=== PATIENT | female | born 2000 | race Caucasian/White ===

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

== ENCOUNTER 2021-01-15 20:09 | Emergency (ER) | payer BC ==
[~2021-01-15] VITALS: Ht 154.9 cm; Wt 42.3 kg
[~2021-01-15 20:09] MED LIST: TRAZ-252 PO
[2021-01-15] MEDS ORDERED: MULTTAB20 PO (20:22)
[2021-01-15] MEDS ORDERED: PROZ10CA7 PO (20:22)
[2021-01-16 00:15] VITALS: BP 121/67
== END 2021-01-16 00:31 | disposition home or self-care (01) ==
LOC: M ED 20:09
DX: O99.340 Other mental disorders complicating pregnancy, unspecified trimester (principal); O99.320 Drug use complicating pregnancy, unspecified trimester; Z3A.00 Weeks of gestation of pregnancy not specified

== ENCOUNTER → 2021-04-22 | Outpatient (CLI) | payer BC ==
[~2021-04-22] MED LIST changes: +MULTTAB20 PO; +PROZ10CA7 PO
== END ==
LOC: M LABSMTC 09:42
PROVIDERS: ATTEND Pediatrics
DX: Z11.52 Encounter for screening for COVID-19 (principal)

== ENCOUNTER 2021-08-30 10:08 | Inpatient (IN) | payer BC ==
[~2021-08-30] VITALS: Ht 154.9 cm; Wt 57.3 kg
[2021-08-30] VITALS (30 sets, daily range): BP systolic 94–170; BP diastolic 53–85
[2021-08-30] MEDS ORDERED: HOME MED LIST COMPLETE! XX SCH (10:35)
[2021-08-30] MEDS ORDERED: LACTATED RINGER'S 1000 ML IV STA (12:12)
[2021-08-30] MEDS ORDERED: TRANEXAMIC ACID INJection 1,000 MG in NS 100 ML IV PRN (12:15)
[2021-08-30] MEDS ORDERED: CARBOPROST TROMETHAMINE 250 MCG/ML AMP IM PRN (12:15)
[2021-08-30] MEDS ORDERED: METHYLERGONOVINE MALEATE 0.2 MG/ML VIAL (J2210) IM PRN (12:15)
[2021-08-30] MEDS ORDERED: OXYTOCIN DRIP 30 UNITS in IV 1 EA IV PRN (12:15)
[2021-08-30] MEDS ORDERED: LIDOCAINE 1% MDV 20ML VIAL INFIL PRN (12:15)
[2021-08-30] MEDS ORDERED: ONDANSETRON 4MG/2ML VIAL IV ONE (12:35)
[2021-08-30 12:57] LABS: HEMATOCRIT 31.1 % (36.0-47.0); HEMOGLOBIN 10.1 g/dl (12.0-15.5); MEAN CORPUSCULAR HEMOGLOBIN 28.7 pg (27.0-33.0); MEAN CORPUSCULAR HGB CONC 32.5 g/dl (32.0-36.5); MEAN CORPUSCULAR VOLUME 88.4 fl (80.0-96.0); PLATELET COUNT, AUTOMATED 305 10^3/uL (150-450); RED BLOOD COUNT 3.52 10^6/uL (4.00-5.40); WHITE BLOOD COUNT 24.3 10^3/uL (4.0-10.0)
[2021-08-30] MEDS ORDERED: FENTANYL 2MCG/ML ROPIVACAINE 0.2% IN 0.9% NACL 100ML IVBAG As Ordered ONE (12:57)
[2021-08-30] MEDS: LR 1,000 ML IV SCH ×2 (13:17→16:49)
[2021-08-30] MEDS ORDERED: NALOXONE INJ 0.4MG/1ML VIAL (J2310 PER 1MG) IV PRN (14:20)
[2021-08-30] MEDS ORDERED: EPIDURAL/PCA KEYS XX PRN (14:20)
[2021-08-30] MEDS ORDERED: ONDANSETRON 4MG/2ML VIAL IV PRN (14:20)
[2021-08-30] MEDS ORDERED: FENTANYL/ROPIVACAINE/NACL BAG 100 ML EPIDURAL SCH (14:20)
[2021-08-30] MEDS ORDERED: diphenhydrAMINE 50MG/ML VIAL (J1200) IV PRN (14:20)
[2021-08-30] MEDS ORDERED: REFRIGERATOR IV KEYS XX PRN (14:20)
[2021-08-30] MEDS ORDERED: ePHEDrine SULFATE 25 MG/5 ML(5MG/ML) SYRINGE IV PRN (14:20)
[2021-08-30] MEDS ORDERED: EPIDURAL COMMENT XX SCH (14:20)
[2021-08-30] MEDS ORDERED: LACTATED RINGER'S 1000 ML IV PRN (14:20)
[2021-08-30] MEDS ORDERED: OXYTOCIN DRIP 30 UNITS in IV 1 EA IV SCH ×2 (18:15→20:50)
[2021-08-30] MEDS ORDERED: METHYLERGONOVINE MALEATE 0.2 MG TAB PO PRN (20:50)
[2021-08-30] MEDS ORDERED: DIBUCAINE 1% OINTMENT 30GM TOP PRN (20:50)
[2021-08-30] MEDS ORDERED: DOCUSATE SODIUM 100MG CAPSULE PO PRN (20:50)
[2021-08-30] MEDS ORDERED: IBUPROFEN 600MG TAB PO PRN (20:50)
[2021-08-30] MEDS ORDERED: RHOGAM 300 MCG (1500 IU) INJ (J2790) IM SCH (20:50)
[2021-08-30] MEDS ORDERED: MOM 30ML SUSPENSION UDC PO PRN (20:50)
[2021-08-30] MEDS ORDERED: ACETAMINOPHEN TAB 650MG DOSE (2X325MG) PO PRN (20:50)
[2021-08-30] MEDS ORDERED: MEASLES,MUMPS,RUBELLA VACCINE INJ (MMR-II) (90707) SC SCH (20:50)
[2021-08-30] MEDS ORDERED: METHYLERGONOVINE MALEATE 0.2 MG/ML VIAL (J2210) IM STA (22:54)
[2021-08-30] MEDS ORDERED: TRANEXAMIC ACID INJection 1,000 MG in D5W 100 ML IV ONE (22:55)
[2021-08-31] VITALS (13 sets, daily range): BP systolic 78–126; BP diastolic 55–110
[2021-08-31] MEDS: IBUPROFEN 800 MG TAB PO PRN ×2 (02:30→19:42)
[2021-08-31 06:24] LABS: MEAN CORPUSCULAR HEMOGLOBIN 28.3 pg (27.0-33.0); MEAN CORPUSCULAR HGB CONC 31.5 g/dl (32.0-36.5); PLATELET COUNT, AUTOMATED 237 10^3/uL (150-450); RED BLOOD COUNT 2.19 10^6/uL (4.00-5.40); WHITE BLOOD COUNT 25.4 10^3/uL (4.0-10.0)
[2021-08-31 06:31] LABS: HEMATOCRIT 19.7 % (36.0-47.0); HEMOGLOBIN 6.2 g/dl (12.0-15.5)
[2021-08-31] MEDS: ACETAMINOPHEN 500 MG TAB PO PRN (09:21)
[2021-08-31] MEDS: PRENATAL VITAMINS CHEWABLE TABLET PO SCH (09:21)
[2021-08-31] MEDS: FERROUS GLUCONATE 324 MG TAB PO SCH (21:49)
[2021-09-01 06:00] VITALS: BP 109/60
[2021-09-01 06:50] LABS: HEMATOCRIT 25.5 % (36.0-47.0); MEAN CORPUSCULAR HEMOGLOBIN 29.6 pg (27.0-33.0); MEAN CORPUSCULAR HGB CONC 33.3 g/dl (32.0-36.5); MEAN CORPUSCULAR VOLUME 88.9 fl (80.0-96.0); PLATELET COUNT, AUTOMATED 235 10^3/uL (150-450); RED BLOOD COUNT 2.87 10^6/uL (4.00-5.40); WHITE BLOOD COUNT 18.5 10^3/uL (4.0-10.0)
[2021-09-01 06:56] LABS: HEMOGLOBIN 8.5 g/dl (12.0-15.5)
[2021-09-01] MEDS: FERROUS GLUCONATE 324 MG TAB PO SCH (09:26)
[2021-09-01] MEDS: PRENATAL VITAMINS CHEWABLE TABLET PO SCH (09:27)
[2021-09-01] MEDS: ACETAMINOPHEN 500 MG TAB PO PRN (09:27)
[2021-09-01] MEDS ORDERED: LATU20TA PO (15:36)
[2021-09-01 16:30] VITALS: BP 113/64
== END 2021-09-01 17:30 | disposition home or self-care (01) | DRG 560 ==
LOC: M LDO 10:08 → M LDI 12:10 → M OBS 22:26
PROVIDERS: ADMIT Obstetrics & Gynecology; ATTEND Obstetrics & Gynecology
PROC: 10E0XZZ Delivery of Products of Conception, External Approach (ICD-10-PCS; principal; 2021-08-30)
DX: O99.344 Other mental disorders complicating childbirth (principal); F31.9 Bipolar disorder, unspecified; Z37.0 Single live birth; Z3A.39 39 weeks gestation of pregnancy; Z88.0 Allergy status to penicillin

== ENCOUNTER 2021-09-28 15:38 | Emergency (ER) | payer BC ==
[~2021-09-28] VITALS: Ht 154.9 cm; Wt 46.4 kg
[~2021-09-28 15:38] MED LIST changes: +LATU20TA PO
[2021-09-28 20:10] VITALS: BP 112/80
== END 2021-09-28 20:13 | disposition home or self-care (01) ==
LOC: M ED 15:38
DX: F43.20 Adjustment disorder, unspecified (principal); J45.909 Unspecified asthma, uncomplicated; F31.9 Bipolar disorder, unspecified; F33.9 Major depressive disorder, recurrent, unspecified; F41.9 Anxiety disorder, unspecified; Z79.899 Other long term (current) drug therapy; Z88.0 Allergy status to penicillin; F12.20 Cannabis dependence, uncomplicated

== ENCOUNTER 2021-12-11 15:52 | Emergency (ER) | payer BC ==
[2021-12-11 21:20] LABS: HEMATOCRIT 37.8 % (36.0-47.0); MEAN CORPUSCULAR HEMOGLOBIN 28.3 pg (27.0-33.0); MEAN CORPUSCULAR HGB CONC 31.7 g/dl (32.0-36.5); MEAN CORPUSCULAR VOLUME 89.2 fl (80.0-96.0); PLATELET COUNT, AUTOMATED 408 10^3/uL (150-450); RED BLOOD COUNT 4.24 10^6/uL (4.00-5.40); WHITE BLOOD COUNT 7.5 10^3/uL (4.0-10.0)
[2021-12-11 21:39] LABS: HCG, SERUM QUALITATIVE NEGATIVE (NEGATIVE)
[2021-12-11 21:49] LABS: ACETAMINOPHEN LEVEL < 2.0 UG/ML (10.0-30.0); ALBUMIN 4.1 GM/DL (3.2-5.2); ALT/SGPT 26 U/L (12-78); BILIRUBIN,DIRECT 0.1 MG/DL (0.0-0.2); BILIRUBIN,TOTAL 0.4 MG/DL (0.2-1.0); BLOOD UREA NITROGEN 9 MG/DL (7-18); CALCIUM LEVEL 9.6 MG/DL (8.5-10.1); CARBON DIOXIDE LEVEL 25 MEQ/L (21-32); CHLORIDE LEVEL 111 MEQ/L (98-107); CREATININE FOR GFR 0.68 MG/DL (0.55-1.30); ETHYL ALCOHOL (ETHANOL) < 0.003 % (0.000-0.010); GLUCOSE, FASTING 87 MG/DL (70-100); POTASSIUM SERUM 3.8 MEQ/L (3.5-5.1); SALICYLATE LEVEL < 1.7 MG/DL (5.0-30.0); SODIUM LEVEL 144 MEQ/L (136-145); TOTAL PROTEIN 7.3 GM/DL (6.4-8.2); VALPROIC ACID (DEPAKOTE) < 3.0 UG/ML (50.0-100.0)
[2021-12-11 22:54] LABS: RSV AMPLIFICATION NEGATIVE (NEGATIVE)
[2021-12-11] MEDS ORDERED: XANA0.5T PO (23:13)
[2021-12-11] MEDS ORDERED: ABIL1TAB11 PO (23:13)
[2021-12-11] MEDS ORDERED: DEPA1TAB PO (23:13)
[2021-12-11] MEDS ORDERED: HOME MED LIST COMPLETE! XX SCH (23:15)
[2021-12-12] MEDS ORDERED: ALPRAZolam 0.5 MG TAB PO ONE ×2 (08:10→11:40)
[2021-12-12] MEDS ORDERED: ACETAMINOPHEN 325 MG TAB PO ONE (08:10)
[2021-12-12] MEDS ORDERED: DIVA250T67 PO (08:23)
[2021-12-12] MEDS ORDERED: ALPRAZolam 0.5 MG TAB PO PRN (08:45)
[2021-12-12 08:59] LABS: AMPHETAMINES LEVEL URINE NEGATIVE (NEGATIVE); BARBITURATES URINE NEGATIVE (NEGATIVE); BENZODIAZEPINES URINE POSITIVE (NEGATIVE); CANNABINOIDS URINE POSITIVE (NEGATIVE); COCAINE METABOLITE URINE NEGATIVE (NEGATIVE); METHADONE URINE NEGATIVE (NEGATIVE); OPIATES URINE NEGATIVE (NEGATIVE); PHENCYCLIDINE URINE NEGATIVE (NEGATIVE)
[2021-12-12] MEDS ORDERED: DIVALPROEX 250 MG TAB PO SCH (09:00)
[2021-12-12] MEDS ORDERED: DIVALPROEX 125 MG TAB PO ONE (09:00)
[2021-12-12 17:58] VITALS: BP 129/73
== END 2021-12-12 17:59 | disposition home or self-care (01) ==
LOC: M ED 15:52
DX: F43.9 Reaction to severe stress, unspecified (principal); F31.9 Bipolar disorder, unspecified; Z63.0 Problems in relationship with spouse or partner; Z79.899 Other long term (current) drug therapy; Z88.1 Allergy status to other antibiotic agents

== ENCOUNTER → 2022-05-05 | Outpatient (CLI) | payer BC ==
[~2022-05-05] MED LIST changes: +ABIL1TAB11 PO; +DEPA1TAB PO; +DIVA250T67 PO; +XANA0.5T PO
== END ==
LOC: M PLALAB 15:01
PROVIDERS: ATTEND Obstetrics & Gynecology
DX: Z34.81 Encounter for supervision of other normal pregnancy, first trimester (principal)

== ENCOUNTER 2022-08-29 17:31 | Emergency (ER) | payer OTHER, BC ==
[~2022-08-29] VITALS: Ht 154.9 cm; Wt 45.5 kg
[2022-08-29 19:32] LABS: BASO # 0.1 10^3/uL (0.0-0.2); BASO % 0.5 % (0.0-1.0); EOS # 0.3 10^3/uL (0.0-0.5); EOS % 1.7 % (0.0-3.0); HEMATOCRIT 33.8 % (36.0-47.0); HEMOGLOBIN 10.9 g/dl (12.0-15.5); LYMPH # 2.6 10^3/uL (1.5-5.0); LYMPH % 17.3 % (24.0-44.0); MEAN CORPUSCULAR HEMOGLOBIN 30.6 pg (27.0-33.0); MEAN CORPUSCULAR HGB CONC 32.2 g/dl (32.0-36.5); MEAN CORPUSCULAR VOLUME 94.9 fl (80.0-96.0); MONO # 0.9 10^3/uL (0.0-0.8); MONO % 6.2 % (2.0-8.0); NEUTROPHILS % 73.4 % (36.0-66.0); PLATELET COUNT, AUTOMATED 238 10^3/uL (150-450); RED BLOOD COUNT 3.56 10^6/uL (4.00-5.40); WHITE BLOOD COUNT 14.9 10^3/uL (4.0-10.0)
[2022-08-29 20:05] LABS: LIPASE 33 U/L (12-53)
[2022-08-29 20:07] LABS: ALBUMIN 3.2 G/DL (3.2-5.2); ALKALINE PHOSPHATASE 90 U/L (46-116); ALT/SGPT 10 U/L (7.0-40); AST/SGOT 14 U/L (<34); BILIRUBIN,TOTAL 0.2 MG/DL (0.3-1.2); BLOOD UREA NITROGEN 9 MG/DL (9-23); CALCIUM LEVEL 8.9 MG/DL (8.5-10.1); CARBON DIOXIDE LEVEL 24 MMOL/L (20-31); CHLORIDE LEVEL 108 MMOL/L (98-107); GLOMERULAR FILTRATION RATE > 60.0 (>60); GLUCOSE, FASTING 75 MG/DL (60-100); SODIUM LEVEL 139 MMOL/L (136-145); TOTAL PROTEIN 6.1 G/DL (5.7-8.2)
[2022-08-29 21:01] VITALS: BP 112/70
[2022-08-29] MEDS ORDERED: LATU20TA PO (21:37)
== END 2022-08-29 21:15 | disposition admitted as inpatient to this hospital (09) ==
LOC: M ED 17:31
DX: O26.893 Other specified pregnancy related conditions, third trimester (principal); S13.4XXA Sprain of ligaments of cervical spine, initial encounter; S33.5XXA Sprain of ligaments of lumbar spine, initial encounter; V49.50XA Passenger injured in collision with unspecified motor vehicles in traffic accident, initial encounter; F41.9 Anxiety disorder, unspecified; Z88.1 Allergy status to other antibiotic agents; Z3A.27 27 weeks gestation of pregnancy; Z79.83 Long term (current) use of bisphosphonates

== ENCOUNTER 2022-08-29 21:19 | Outpatient (CLI) | payer OTHER, BC ==
[~2022-08-29] VITALS: Ht 154.9 cm; Wt 45.7 kg
[2022-08-29 21:31] VITALS: BP 103/61
[2022-08-29] MEDS ORDERED: LATU20TA PO (21:37)
[2022-08-29] MEDS ORDERED: HOME MED LIST COMPLETE! XX SCH (21:40)
== END 2022-08-29 22:13 | disposition home or self-care (01) ==
LOC: M LDO 21:19
PROVIDERS: ATTEND Specialist
DX: O26.892 Other specified pregnancy related conditions, second trimester (principal); M54.50 Low back pain, unspecified; V43.62XA Car passenger injured in collision with other type car in traffic accident, initial encounter; Y92.9 Unspecified place or not applicable; Z04.1 Encounter for examination and observation following transport accident; Z3A.27 27 weeks gestation of pregnancy
CPT/HCPCS: 59025; 72125; 80053; 83690; 85025; 85460; 86850; 86900; 86901; 99284; G0463

== ENCOUNTER → 2022-10-04 | Outpatient (CLI) | payer BC | LOC: M WHC 12:22 | PROVIDERS: ATTEND Advanced Practice Midwife | DX: Z34.93 Encounter for supervision of normal pregnancy, unspecified, third trimester (principal); Z3A.32 32 weeks gestation of pregnancy; Z36.89 Encounter for other specified antenatal screening ==

== ENCOUNTER 2022-10-09 21:28 | Emergency (ER) | payer BC ==
[~2022-10-09] VITALS: Ht 154.9 cm; Wt 46.4 kg
[2022-10-09 21:41] VITALS: BP 122/67
== END 2022-10-09 22:29 | disposition left against medical advice (07) ==
LOC: M ED 21:28
DX: Z53.21 Procedure and treatment not carried out due to patient leaving prior to being seen by health care provider (principal)

== ENCOUNTER → 2022-10-11 | Outpatient (CLI) | payer BC ==
[2022-10-11 19:29] LABS: HEMATOCRIT 36.3 % (36.0-47.0); HEMOGLOBIN 11.6 g/dl (12.0-15.5); MEAN CORPUSCULAR HEMOGLOBIN 29.1 pg (27.0-33.0); PLATELET COUNT, AUTOMATED 317 10^3/uL (150-450); RED BLOOD COUNT 3.99 10^6/uL (4.00-5.40); WHITE BLOOD COUNT 13.2 10^3/uL (4.0-10.0)
[2022-10-11 20:20] LABS: GC DNA AMPLIFICATION NEGATIVE (NEGATIVE)
== END ==
LOC: M LAB 17:41
PROVIDERS: ATTEND Obstetrics & Gynecology
DX: O26.843 Uterine size-date discrepancy, third trimester (principal); Z3A.00 Weeks of gestation of pregnancy not specified

== ENCOUNTER 2022-10-24 13:16 | Outpatient (CLI) | payer BC ==
[~2022-10-24] VITALS: Ht 154.9 cm; Wt 45.1 kg
[2022-10-24 13:35] VITALS: BP 108/67
[2022-10-24] MEDS ORDERED: MULTTAB20 PO (13:44)
[2022-10-24] MEDS ORDERED: HOME MED LIST COMPLETE! XX SCH (13:50)
[2022-10-24 14:43] LABS: AMPHETAMINES URINE REFLEX NEGATIVE (NEGATIVE); BARBITURATES URINE REFLEX NEGATIVE (NEGATIVE); BENZODIAZEPINES URINE REFLEX NEGATIVE (NEGATIVE); COCAINE METABOLITE URINE REFLE NEGATIVE (NEGATIVE); METHADONE URINE REFLEX NEGATIVE (NEGATIVE); OPIATES URINE REFLEX NEGATIVE (NEGATIVE); PHENCYCLIDINE URINE REFLEX NEGATIVE (NEGATIVE)
[2022-10-24 14:56] LABS: HEMATOCRIT 33.2 % (36.0-47.0); HEMOGLOBIN 10.8 g/dl (12.0-15.5); MEAN CORPUSCULAR HEMOGLOBIN 29.3 pg (27.0-33.0); MEAN CORPUSCULAR HGB CONC 32.5 g/dl (32.0-36.5); PLATELET COUNT, AUTOMATED 280 10^3/uL (150-450); RED BLOOD COUNT 3.69 10^6/uL (4.00-5.40); WHITE BLOOD COUNT 12.2 10^3/uL (4.0-10.0)
[2022-10-24 15:12] LABS: CANNABINOIDS URINE REFLEX PENDING CONFIRMATION (NEGATIVE)
[2022-10-24 15:21] LABS: ALBUMIN 3.1 G/DL (3.2-5.2); ALKALINE PHOSPHATASE 160 U/L (46-116); ALT/SGPT 15 U/L (7.0-40); AST/SGOT 16 U/L (<34); BILIRUBIN,TOTAL 0.3 MG/DL (0.3-1.2); BLOOD UREA NITROGEN 7 MG/DL (9-23); CALCIUM LEVEL 8.8 MG/DL (8.5-10.1); CARBON DIOXIDE LEVEL 23 MMOL/L (20-31); CHLORIDE LEVEL 106 MMOL/L (98-107); CREATININE FOR GFR 0.47 MG/DL (0.55-1.30); GLOMERULAR FILTRATION RATE > 60.0 (>60); GLUCOSE, FASTING 82 MG/DL (60-100); POTASSIUM SERUM 3.8 MMOL/L (3.5-5.1); SODIUM LEVEL 138 MMOL/L (136-145); TOTAL PROTEIN 6.1 G/DL (5.7-8.2)
[2022-10-24 15:40] VITALS: BP 111/68
[2022-10-24] MEDS ORDERED: FERR325T3 PO (16:00)
[2022-10-24] MEDS ORDERED: PROC1AER16 PR (16:01)
[2022-10-24] MEDS ORDERED: COLA100C5 PO (16:08)
== END 2022-10-24 16:04 | disposition home or self-care (01) ==
LOC: M LDO 13:16
PROVIDERS: ATTEND Obstetrics & Gynecology
DX: O26.893 Other specified pregnancy related conditions, third trimester (principal); R42 Dizziness and giddiness; O99.893 Other specified diseases and conditions complicating puerperium; H53.8 Other visual disturbances; O99.343 Other mental disorders complicating pregnancy, third trimester; F31.9 Bipolar disorder, unspecified; Z3A.35 35 weeks gestation of pregnancy
CPT/HCPCS: 36415; 59025; 80053; 80307; 85027; G0463; G0480

== ENCOUNTER → 2022-11-11 | Outpatient (REF) | payer BC ==
[~2022-11-11] MED LIST changes: +COLA100C5 PO; +FERR325T3 PO; +PROC1AER16 PR
== END ==
LOC: M PLALAB 09:29
PROVIDERS: ATTEND Advanced Practice Midwife
DX: O99.343 Other mental disorders complicating pregnancy, third trimester (principal); Z3A.00 Weeks of gestation of pregnancy not specified

== ENCOUNTER 2023-07-27 09:28 | Emergency (ER) | payer BC, OTHER ==
[~2023-07-27] VITALS: Ht 154.9 cm; Wt 35.9 kg
[2023-07-27] MEDS ORDERED: CLAR10CA3 PO (09:55)
[2023-07-27] MEDS ORDERED: EQL50TAB2 PO (09:55)
[2023-07-27] MEDS ORDERED: LIDO30CR18 (09:55)
[2023-07-27] MEDS ORDERED: ATIV1TAB10 PO (09:55)
[2023-07-27] MEDS ORDERED: PROC10TA5 PO ×2 (09:55→13:26)
[2023-07-27] MEDS ORDERED: LOPE1CAP5 (09:55)
[2023-07-27] MEDS ORDERED: ONDANSETRON 4MG 2ML VIAL IV ONE (10:00)
[2023-07-27] MEDS ORDERED: SODIUM CHLORIDE 0.9% INJ 10 ML SYR IV PRN (10:00)
[2023-07-27] MEDS ORDERED: NS 1,000 ML IV ONE (10:30)
[2023-07-27] MEDS ORDERED: PEGF6SYR SQ (11:02)
[2023-07-27 11:24] LABS: BASO % 0.7 % (0.0-1.0); HEMATOCRIT 32.1 % (36.0-47.0); HEMOGLOBIN 10.6 g/dl (12.0-15.5); LYMPH # 0.5 10^3/uL (1.5-5.0); LYMPH % 34.3 % (24.0-44.0); MEAN CORPUSCULAR HEMOGLOBIN 28.9 pg (27.0-33.0); MEAN CORPUSCULAR VOLUME 87.5 fl (80.0-96.0); MONO # 0.4 10^3/uL (0.0-0.8); MONO % 25.7 % (2.0-8.0); NEUTROPHILS % 38.6 % (36.0-66.0); PLATELET COUNT, AUTOMATED 131 10^3/uL (150-450); RED BLOOD COUNT 3.67 10^6/uL (4.00-5.40); WHITE BLOOD COUNT 1.4 10^3/uL (4.0-10.0)
[2023-07-27 11:26] LABS: NEUTROPHILS # 0.5 10^3/uL (1.5-8.5)
[2023-07-27 11:38] LABS: LIPASE 26 U/L (12-53)
[2023-07-27 11:40] LABS: ALBUMIN 4.3 G/DL (3.2-5.2); ALKALINE PHOSPHATASE 66 U/L (46-116); ALT/SGPT 24 U/L (7.0-40); AST/SGOT 17 U/L (<34); BILIRUBIN,DIRECT 0.2 MG/DL (<0.4); BILIRUBIN,TOTAL 0.5 MG/DL (0.3-1.2); BLOOD UREA NITROGEN 7 MG/DL (9-23); CARBON DIOXIDE LEVEL 22 MMOL/L (20-31); CHLORIDE LEVEL 106 MMOL/L (98-107); CREATININE FOR GFR 0.46 MG/DL (0.55-1.30); GLOMERULAR FILTRATION RATE > 60.0 (>60); GLUCOSE, FASTING 104 MG/DL (60-100); POTASSIUM SERUM 3.8 MMOL/L (3.5-5.1); SODIUM LEVEL 136 MMOL/L (136-145); TOTAL PROTEIN 7.2 G/DL (5.7-8.2)
[2023-07-27 12:27] LABS: APPEARANCE, URINE HAZY (CLEAR); BACTERIA, URINE AUTO NEGATIVE (NEGATIVE); BILIRUBIN, URINE AUTO NEGATIVE (NEGATIVE); BLOOD, URINE BLOOD NEGATIVE (NEGATIVE); COLOR, URINE YELLOW (YELLOW); GLUCOSE, URINE (UA) AUTO NEGATIVE (NEGATIVE); KETONE, URINE AUTO 1+ mg/dL (NEGATIVE); LEUKOCYTE ESTERASE, URINE AUTO NEGATIVE (NEGATIVE); MUCUS, URINE LARGE (NEGATIVE); NITRITE, URINE AUTO NEGATIVE (NEGATIVE); PROTEIN, URINE AUTO 2+ mg/dL (NEGATIVE); RBC, URINE AUTO 0 /HPF (0-3); SPECIFIC GRAVITY URINE AUTO 1.025 (1.002-1.035); SQUAMOUS EPITHELIAL CELL UR AU 2 /HPF (0-6); UROBILINOGEN, URINE AUTO 0.2 mg/dL (0.0-2.0); WBC, URINE AUTO 5 /HPF (0-3)
[2023-07-27 12:56] VITALS: BP 107/67; TEMP 99.2; O2SAT 100
[2023-07-27] MEDS ORDERED: MEDR4PAK PO (13:26)
[2023-07-27] MEDS ORDERED: BENA25CA4 PO (13:26)
[2023-07-27] MEDS ORDERED: MONT-5 PO (13:26)
[2023-07-27] MEDS ORDERED: ONDA4TAB6 PO (13:26)
[2023-07-27] MEDS ORDERED: PEPC1TAB5 PO (13:26)
[2023-07-27] MEDS ORDERED: LOPE1CAP5 PO (13:44)
[2023-07-28] MEDS ORDERED: SODIUM CHLORIDE 0.9% INJ 10 ML SYR IV SCH (09:00)
== END 2023-07-27 13:48 | disposition home or self-care (01) ==
LOC: M ED 09:28 → EDBD 09:28 → M ED 13:48
DX: R11.2 Nausea with vomiting, unspecified (principal); R19.7 Diarrhea, unspecified; R21 Rash and other nonspecific skin eruption; Z88.8 Allergy status to other drugs, medicaments and biological substances
CPT/HCPCS: 80048; 80076; 81001; 83690; 85025; 87486; 87581; 87633; 87798; 96361; 96374; 96375; 99284; J2405

== ENCOUNTER 2023-07-28 04:42 | Inpatient (IN) | payer OTHER ==
[~2023-07-28] VITALS: Ht 154.9 cm; Wt 38.5 kg
[~2023-07-28 04:42] MED LIST changes: +ATIV1TAB10 PO; +BENA25CA4 PO; +CLAR10CA3 PO; +EQL50TAB2 PO; +LIDO30CR18; +LOPE1CAP5; +LOPE1CAP5 PO; +MEDR4PAK PO; +MONT-5 PO; +ONDA4TAB6 PO; +PEGF6SYR SQ; +PEPC1TAB5 PO; +PROC10TA5 PO
[2023-07-28 06:28] LABS: HEMATOCRIT 28.1 % (36.0-47.0); HEMOGLOBIN 9.3 g/dl (12.0-15.5); MEAN CORPUSCULAR HEMOGLOBIN 28.9 pg (27.0-33.0); MEAN CORPUSCULAR HGB CONC 33.1 g/dl (32.0-36.5); MEAN CORPUSCULAR VOLUME 87.3 fl (80.0-96.0); RED BLOOD COUNT 3.22 10^6/uL (4.00-5.40); WHITE BLOOD COUNT 1.8 10^3/uL (4.0-10.0)
[2023-07-28 06:45] LABS: C REACTIVE PROTEIN QUANTITATIV < 0.40 MG/DL (<1.0)
[2023-07-28 06:46] LABS: AMYLASE 67 U/L (30-118)
[2023-07-28 06:48] LABS: INR 1.21; PROTHROMBIN TIME 14.9 SECONDS (12.5-14.5)
[2023-07-28 06:49] LABS: PARTIAL THROMBOPLASTIN TIME 31.1 SECONDS (24.8-34.2)
[2023-07-28 06:58] LABS: PROCALCITONIN 0.15 ng/ml
[2023-07-28] MEDS ORDERED: PROMETHAZINE 25MG/ML 1ML VIAL IV ONE (07:00)
[2023-07-28 07:05] LABS: ALBUMIN 3.8 G/DL (3.2-5.2); ALKALINE PHOSPHATASE 58 U/L (46-116); ALT/SGPT 21 U/L (7.0-40); AST/SGOT 13 U/L (<34); BILIRUBIN,DIRECT 0.2 MG/DL (<0.4); BILIRUBIN,TOTAL 0.4 MG/DL (0.3-1.2); BLOOD UREA NITROGEN 7 MG/DL (9-23); CALCIUM LEVEL 8.5 MG/DL (8.5-10.1); CARBON DIOXIDE LEVEL 24 MMOL/L (20-31); CHLORIDE LEVEL 104 MMOL/L (98-107); CREATININE FOR GFR 0.58 MG/DL (0.55-1.30); GLOMERULAR FILTRATION RATE > 60.0 (>60); GLUCOSE, FASTING 92 MG/DL (60-100); POTASSIUM SERUM 3.5 MMOL/L (3.5-5.1); SODIUM LEVEL 135 MMOL/L (136-145); TOTAL PROTEIN 6.2 G/DL (5.7-8.2)
[2023-07-28 07:25] LABS: PLATELET COUNT, AUTOMATED 96 10^3/uL (150-450)
[2023-07-28 07:35] LABS: ATYPICAL LYMPH 1 % (0-5); LYMPHOCYTES 27 % (16-44); MONOCYTES 28 % (0-5); NEUTROPHILS 43 % (28-66); OVALOCYTES 2+; PLATELET ESTIMATE DECREASED (NORMAL)
[2023-07-28] MEDS ORDERED: ISOVUE-370 76% 100ML VIAL As Ordered ONE (08:13)
[2023-07-28 08:49] LABS: APPEARANCE, URINE HAZY (CLEAR); BACTERIA, URINE AUTO NEGATIVE (NEGATIVE); BILIRUBIN, URINE AUTO NEGATIVE (NEGATIVE); BLOOD, URINE BLOOD NEGATIVE (NEGATIVE); COLOR, URINE AMBER (YELLOW); GLUCOSE, URINE (UA) AUTO NEGATIVE (NEGATIVE); KETONE, URINE AUTO 1+ mg/dL (NEGATIVE); LEUKOCYTE ESTERASE, URINE AUTO NEGATIVE (NEGATIVE); MUCUS, URINE LARGE (NEGATIVE); NITRITE, URINE AUTO NEGATIVE (NEGATIVE); PROTEIN, URINE AUTO 2+ mg/dL (NEGATIVE); RBC, URINE AUTO 1 /HPF (0-3); SPECIFIC GRAVITY URINE AUTO 1.028 (1.002-1.035); SQUAMOUS EPITHELIAL CELL UR AU 1 /HPF (0-6); UROBILINOGEN, URINE AUTO 0.2 mg/dL (0.0-2.0); WBC, URINE AUTO 18 /HPF (0-3)
[2023-07-28] MEDS ORDERED: CEFEPIME HCL 2 GM in D5W MINI-BAG PLUS 50 ML IV ONE (12:20)
[2023-07-28] MEDS ORDERED: NS 1,000 ML IV ONE (12:30)
[2023-07-28] MEDS ORDERED: MED REC IN PROGRESS XX SCH (13:00)
[2023-07-28] MEDS ORDERED: FILGRASTIM 300MCG 0.5ML SYRINGE **SC ADMINISTRATION ONLY SC ONE (13:20)
[2023-07-28] MEDS ORDERED: HOME MED LIST COMPLETE! XX SCH (13:25)
[2023-07-28] MEDS ORDERED: ONDANSETRON 4MG 2ML VIAL IV PRN (14:10)
[2023-07-28] MEDS ORDERED: CEFEPIME HCL 1 GM in D5W MINI-BAG PLUS 50 ML IV SCH (14:10)
[2023-07-28 16:40] VITALS: BP 117/63; TEMP 99.1; O2SAT 100
[2023-07-28] MEDS: NS 1,000 ML IV SCH (17:02)
[2023-07-28] MEDS: LORazepam 0.5 MG TAB PO PRN (17:02)
[2023-07-28] MEDS ORDERED: PROCHLORPERAZINE 10MG 2ML VIAL IV PRN ×2 (17:55→18:32)
[2023-07-28 19:54] VITALS: BP 91/53; TEMP 101; O2SAT 97
[2023-07-28] MEDS: CEFEPIME HCL 2 GM in D5W MINI-BAG PLUS 50 ML IV SCH (20:16)
[2023-07-28] MEDS: MUPIROCIN 2% OINT 22 GM TUBE TOP SCH (21:00)
[2023-07-28] MEDS ORDERED: VANCOMYCIN HCL 1,000 MG, VIAL MATE ADAPTER 1 EACH in D5W 250 ML IV SCH (22:00)
[2023-07-29 05:12] VITALS: BP 106/60; TEMP 100.3; O2SAT 98
[2023-07-29] MEDS: NS 1,000 ML IV SCH ×2 (05:57→22:51)
[2023-07-29] MEDS: CEFEPIME HCL 2 GM in D5W MINI-BAG PLUS 50 ML IV SCH ×3 (05:57→21:03)
[2023-07-29] MEDS ORDERED: VANCOMYCIN HCL 500 MG in D5W MINI-BAG PLUS 100 ML IV SCH (06:00)
[2023-07-29 06:39] LABS: HEMATOCRIT 25.4 % (36.0-47.0); HEMOGLOBIN 8.3 g/dl (12.0-15.5); MEAN CORPUSCULAR HEMOGLOBIN 28.1 pg (27.0-33.0); MEAN CORPUSCULAR HGB CONC 32.7 g/dl (32.0-36.5); MEAN CORPUSCULAR VOLUME 86.1 fl (80.0-96.0); RED BLOOD COUNT 2.95 10^6/uL (4.00-5.40); WHITE BLOOD COUNT 3.4 10^3/uL (4.0-10.0)
[2023-07-29 06:45] LABS: PLATELET COUNT, AUTOMATED 95 10^3/uL (150-450)
[2023-07-29 07:17] LABS: EOSINOPHILS 1 % (0-3); LYMPHOCYTES 16 % (16-44); MONOCYTES 11 % (0-5); NEUTROPHILS 60 % (28-66); OVALOCYTES 1+; PLATELET ESTIMATE DECREASED (NORMAL)
[2023-07-29 07:18] LABS: POLYCHROMASIA 1+; SCHISTOCYTES 1+
[2023-07-29 07:19] LABS: BLOOD UREA NITROGEN < 5 MG/DL (9-23); CARBON DIOXIDE LEVEL 21 MMOL/L (20-31); CHLORIDE LEVEL 103 MMOL/L (98-107); CREATININE FOR GFR 0.62 MG/DL (0.55-1.30); GLOMERULAR FILTRATION RATE > 60.0 (>60); GLUCOSE, FASTING 98 MG/DL (60-100); POTASSIUM SERUM 3.3 MMOL/L (3.5-5.1); SODIUM LEVEL 133 MMOL/L (136-145)
[2023-07-29] MEDS ORDERED: POTASSIUM CHLORIDE 10MEQ SR TABLET PO ONE (09:00)
[2023-07-29] MEDS ORDERED: FILGRASTIM 300MCG 0.5ML SYRINGE **SC ADMINISTRATION ONLY SC SCH ×2 (09:00)
[2023-07-29] MEDS: MUPIROCIN 2% OINT 22 GM TUBE TOP SCH ×3 (10:14→21:04)
[2023-07-29] MEDS: FIDAXOMICIN 200 MG TAB (DIFICID) PO SCH ×2 (10:15→21:03)
[2023-07-29] MEDS: LORazepam 0.5 MG TAB PO PRN ×2 (10:16→21:03)
[2023-07-29] MEDS: KCL 10MEQ/100ML SWI (KRUN) 10 MEQ in IV 1 EA IV SCH ×2 (10:18→12:05)
[2023-07-29] MEDS: ACETAMINOPHEN TAB 650MG DOSE (2X325MG) PO PRN (12:05)
[2023-07-29 14:00] VITALS: BP 110/68; TEMP 99.3; O2SAT 99
[2023-07-29] MEDS: VANCOMYCIN HCL 750 MG, VIAL MATE ADAPTER 1 EACH in D5W 250 ML IV SCH ×2 (16:54→22:50)
[2023-07-29] MEDS ORDERED: diphenhydrAMINE 50MG/ML VIAL IV ONE (21:15)
[2023-07-29] MEDS ORDERED: diphenhydrAMINE 25MG CAP PO PRN (21:15)
[2023-07-29 21:20] VITALS: BP 110/73; TEMP 99.1; O2SAT 99
[2023-07-30] MEDS: ACETAMINOPHEN TAB 650MG DOSE (2X325MG) PO PRN (04:42)
[2023-07-30 05:34] VITALS: BP 105/73; TEMP 101.2; O2SAT 98
[2023-07-30 05:45] VITALS: TEMP 101
[2023-07-30] MEDS ORDERED: IBUPROFEN 400MG TAB PO PRN (05:50)
[2023-07-30] MEDS: CEFEPIME HCL 2 GM in D5W MINI-BAG PLUS 50 ML IV SCH (06:02)
[2023-07-30 06:26] LABS: HEMATOCRIT 26.8 % (36.0-47.0); MEAN CORPUSCULAR HEMOGLOBIN 28.8 pg (27.0-33.0); MEAN CORPUSCULAR HGB CONC 33.6 g/dl (32.0-36.5); MEAN CORPUSCULAR VOLUME 85.6 fl (80.0-96.0); RED BLOOD COUNT 3.13 10^6/uL (4.00-5.40); WHITE BLOOD COUNT 3.4 10^3/uL (4.0-10.0)
[2023-07-30 06:30] LABS: PLATELET COUNT, AUTOMATED 87 10^3/uL (150-450)
[2023-07-30] MEDS: VANCOMYCIN HCL 750 MG, VIAL MATE ADAPTER 1 EACH in D5W 250 ML IV SCH (06:55)
[2023-07-30] MEDS: LORazepam 0.5 MG TAB PO PRN (07:01)
[2023-07-30 07:10] LABS: ATYPICAL LYMPH 3 % (0-5); LYMPHOCYTES 12 % (16-44); METAMYELOCYTES 1 % (0-0); MONOCYTES 2 % (0-5); NEUTROPHILS 81 % (28-66); OVALOCYTES 1+
[2023-07-30 07:11] LABS: PLATELET ESTIMATE DECREASED (NORMAL)
[2023-07-30 07:21] LABS: BLOOD UREA NITROGEN < 5 MG/DL (9-23); CARBON DIOXIDE LEVEL 21 MMOL/L (20-31); CHLORIDE LEVEL 108 MMOL/L (98-107); CREATININE FOR GFR 0.54 MG/DL (0.55-1.30); GLOMERULAR FILTRATION RATE > 60.0 (>60); GLUCOSE, FASTING 94 MG/DL (60-100); POTASSIUM SERUM 3.8 MMOL/L (3.5-5.1); SODIUM LEVEL 136 MMOL/L (136-145)
[2023-07-30 08:07] VITALS: TEMP 98.5
[2023-07-30] MEDS: FIDAXOMICIN 200 MG TAB (DIFICID) PO SCH (08:16)
[2023-07-30] MEDS: MUPIROCIN 2% OINT 22 GM TUBE TOP SCH ×2 (08:17→15:26)
[2023-07-30] MEDS: NS 1,000 ML IV SCH (08:17)
[2023-07-30] MEDS ORDERED: LIDOCAINE 5% (LIDODERM) PATCH TD ONE (11:05)
[2023-07-30] MEDS ORDERED: SODIUM CHLORIDE 0.9% INJ 10 ML SYR IV PRN (11:10)
[2023-07-30] MEDS ORDERED: DIFI200T PO (15:04)
[2023-07-30] MEDS ORDERED: VANC125C3 PO (16:57)
[2023-07-31] MEDS ORDERED: ACET-683 PO (08:22)
[2023-07-31] MEDS ORDERED: LOPE1CAP5 PO (08:22)
== END 2023-07-30 18:00 | disposition left against medical advice (07) | DRG 248 ==
LOC: M ED 04:42 → EDBD 04:42 → M ED INP 13:16 → M MS5PR 16:35
PROVIDERS: ADMIT Internal Medicine Nephrology; ATTEND Internal Medicine Nephrology
DX: A04.72 Enterocolitis due to Clostridium difficile, not specified as recurrent (principal); E43 Unspecified severe protein-calorie malnutrition; D61.810 Antineoplastic chemotherapy induced pancytopenia; D84.9 Immunodeficiency, unspecified; C77.3 Secondary and unspecified malignant neoplasm of axilla and upper limb lymph nodes; D70.9 Neutropenia, unspecified; C50.911 Malignant neoplasm of unspecified site of right female breast; F17.200 Nicotine dependence, unspecified, uncomplicated; F31.9 Bipolar disorder, unspecified; F32.A Depression, unspecified; F41.9 Anxiety disorder, unspecified; Z68.1 Body mass index [BMI] 19.9 or less, adult; Z92.21 Personal history of antineoplastic chemotherapy; Z88.8 Allergy status to other drugs, medicaments and biological substances; Z79.899 Other long term (current) drug therapy

== ENCOUNTER 2023-07-31 07:19 | Inpatient (IN) | payer BC, OTHER ==
[~2023-07-31] VITALS: Ht 154.9 cm; Wt 36.5 kg
[~2023-07-31 07:19] MED LIST changes: +DIFI200T PO; +VANC125C3 PO
[2023-07-31] MEDS ORDERED: MED REC IN PROGRESS XX SCH (08:15)
[2023-07-31] MEDS ORDERED: ACET-683 PO (08:22)
[2023-07-31] MEDS ORDERED: LOPE1CAP5 PO (08:22)
[2023-07-31] MEDS ORDERED: HOME MED LIST COMPLETE! XX SCH (08:30)
[2023-07-31] MEDS ORDERED: LR 1,000 ML IV SCH (08:45)
[2023-07-31 09:38] LABS: HEMATOCRIT 29.5 % (36.0-47.0); HEMOGLOBIN 9.8 g/dl (12.0-15.5); MEAN CORPUSCULAR HEMOGLOBIN 28.4 pg (27.0-33.0); MEAN CORPUSCULAR HGB CONC 33.2 g/dl (32.0-36.5); MEAN CORPUSCULAR VOLUME 85.5 fl (80.0-96.0); RED BLOOD COUNT 3.45 10^6/uL (4.00-5.40)
[2023-07-31 09:39] LABS: PLATELET COUNT, AUTOMATED 58 10^3/uL (150-450)
[2023-07-31 09:58] LABS: ATYPICAL LYMPH 5 % (0-5); BASOPHILS 1 % (0-1); LYMPHOCYTES 38 % (16-44); MONOCYTES 5 % (0-5); NEUTROPHILS 47 % (28-66); PLATELET ESTIMATE DECREASED (NORMAL)
[2023-07-31 09:59] LABS: TEAR DROP CELLS 1+
[2023-07-31 10:00] LABS: ANISOCYTOSIS 1+; OVALOCYTES 2+; POIKILOCYTOSIS 2+; SCHISTOCYTES 1+
[2023-07-31] MEDS ORDERED: ACETAMINOPHEN TAB 650MG DOSE (2X325MG) PO ONE (10:00)
[2023-07-31 10:01] LABS: SICKLE CELLS 1+
[2023-07-31 10:02] LABS: BURR CELLS 1+; POLYCHROMASIA 1+
[2023-07-31 10:08] LABS: ALBUMIN 3.8 G/DL (3.2-5.2); ALKALINE PHOSPHATASE 54 U/L (46-116); ALT/SGPT 26 U/L (7.0-40); AST/SGOT 34 U/L (<34); BILIRUBIN,TOTAL 0.3 MG/DL (0.3-1.2); BLOOD UREA NITROGEN < 5 MG/DL (9-23); CALCIUM LEVEL 8.6 MG/DL (8.5-10.1); CARBON DIOXIDE LEVEL 21 MMOL/L (20-31); CHLORIDE LEVEL 109 MMOL/L (98-107); GLOMERULAR FILTRATION RATE > 60.0 (>60); GLUCOSE, FASTING 100 MG/DL (60-100); POTASSIUM SERUM 3.5 MMOL/L (3.5-5.1); SODIUM LEVEL 140 MMOL/L (136-145); TOTAL PROTEIN 6.5 G/DL (5.7-8.2)
[2023-07-31] MEDS: FIDAXOMICIN 200 MG TAB (DIFICID) PO SCH ×2 (10:08→20:02)
[2023-07-31] MEDS ORDERED: ACETAMINOPHEN 500 MG TAB PO PRN (12:00)
[2023-07-31] MEDS ORDERED: ACETAMINOPHEN TAB 650MG DOSE (2X325MG) PO PRN (12:00)
[2023-07-31] MEDS ORDERED: IBUPROFEN 200MG TAB PO PRN (12:00)
[2023-07-31 16:48] VITALS: BP 100/66; TEMP 98.2; O2SAT 96
[2023-07-31] MEDS ORDERED: LORazepam 0.5 MG TAB PO PRN (17:40)
[2023-07-31 20:11] VITALS: BP 102/66; TEMP 97.9; O2SAT 97
[2023-07-31] MEDS ORDERED: diphenhydrAMINE 50MG CAP PO SCH (21:00)
[2023-08-01 02:00] VITALS: BP 101/67; TEMP 97.5; O2SAT 100
[2023-08-01 06:00] VITALS: BP 106/65; TEMP 98.1; O2SAT 99
[2023-08-01 06:24] LABS: BASO % 0.3 % (0.0-1.0); HEMATOCRIT 26.1 % (36.0-47.0); HEMOGLOBIN 8.9 g/dl (12.0-15.5); LYMPH # 1.6 10^3/uL (1.5-5.0); LYMPH % 51.8 % (24.0-44.0); MEAN CORPUSCULAR HEMOGLOBIN 29.1 pg (27.0-33.0); MEAN CORPUSCULAR HGB CONC 34.1 g/dl (32.0-36.5); MEAN CORPUSCULAR VOLUME 85.3 fl (80.0-96.0); MONO # 0.3 10^3/uL (0.0-0.8); MONO % 9.5 % (2.0-8.0); NEUTROPHILS # 1.2 10^3/uL (1.5-8.5); NEUTROPHILS % 37.7 % (36.0-66.0); RED BLOOD COUNT 3.06 10^6/uL (4.00-5.40); WHITE BLOOD COUNT 3.1 10^3/uL (4.0-10.0)
[2023-08-01 06:28] LABS: PLATELET COUNT, AUTOMATED 43 10^3/uL (150-450)
[2023-08-01 06:41] LABS: BLOOD UREA NITROGEN 7 MG/DL (9-23); CALCIUM LEVEL 8.5 MG/DL (8.5-10.1); CARBON DIOXIDE LEVEL 23 MMOL/L (20-31); CHLORIDE LEVEL 107 MMOL/L (98-107); CREATININE FOR GFR 0.46 MG/DL (0.55-1.30); GLOMERULAR FILTRATION RATE > 60.0 (>60); GLUCOSE, FASTING 87 MG/DL (60-100); POTASSIUM SERUM 3.1 MMOL/L (3.5-5.1); SODIUM LEVEL 140 MMOL/L (136-145)
[2023-08-01] MEDS: FIDAXOMICIN 200 MG TAB (DIFICID) PO SCH (08:44)
[2023-08-01] MEDS ORDERED: POTASSIUM CHLORIDE 10MEQ SR TABLET PO SCH (09:00)
[2023-08-01 10:00] VITALS: BP 109/71; TEMP 97.7; O2SAT 100
[2023-08-01] MEDS ORDERED: FIDA200TA PO (10:12)
[2023-08-01] MEDS ORDERED: DIFI200T PO (11:09)
== END 2023-08-01 10:47 | disposition home or self-care (01) | DRG 248 ==
LOC: M ED 07:19 → M ED INP 08:42 → ENRESERV 16:04 → M MSPAV 17:08
PROVIDERS: ADMIT Family Medicine; ATTEND Family Medicine
DX: A04.72 Enterocolitis due to Clostridium difficile, not specified as recurrent (principal); E43 Unspecified severe protein-calorie malnutrition; D61.810 Antineoplastic chemotherapy induced pancytopenia; D70.1 Agranulocytosis secondary to cancer chemotherapy; C77.3 Secondary and unspecified malignant neoplasm of axilla and upper limb lymph nodes; C50.919 Malignant neoplasm of unspecified site of unspecified female breast; Z92.21 Personal history of antineoplastic chemotherapy; F31.9 Bipolar disorder, unspecified; F32.A Depression, unspecified; Z68.1 Body mass index [BMI] 19.9 or less, adult

== ENCOUNTER 2024-10-27 02:55 | Emergency (ER) | payer BC, MEDICAID, OTHER ==
[~2024-10-27] VITALS: Ht 154.9 cm; Wt 43.6 kg
[~2024-10-27 02:55] MED LIST changes: +ACET-683 PO; +FIDA200TA PO; +ONDA-282 PO; -ONDA4TAB6 PO; +VANC125C13 PO; -VANC125C3 PO
[2024-10-27 03:54] LABS: HEMATOCRIT 29.3 % (36.0-47.0); HEMOGLOBIN 9.3 g/dl (12.0-15.5); MEAN CORPUSCULAR HEMOGLOBIN 31.7 pg (27.0-33.0); MEAN CORPUSCULAR HGB CONC 31.7 g/dl (32.0-36.5); PLATELET COUNT, AUTOMATED 243 10^3/uL (150-450); RED BLOOD COUNT 2.93 10^6/uL (4.00-5.40); WHITE BLOOD COUNT 5.5 10^3/uL (4.0-10.0)
[2024-10-27 04:17] LABS: ETHYL ALCOHOL (ETHANOL) < 0.003 % (0.000-0.010)
[2024-10-27 04:18] LABS: HCG, SERUM QUALITATIVE NEGATIVE (NEGATIVE)
[2024-10-27 04:19] LABS: ALBUMIN 4.3 G/DL (3.2-5.2); ALKALINE PHOSPHATASE 63 U/L (35-104); ALT/SGPT 99 U/L (7.0-40); AST/SGOT 102 U/L (<34); BILIRUBIN,DIRECT < 0.1 MG/DL (<0.4); BILIRUBIN,TOTAL 0.4 MG/DL (0.3-1.2); BLOOD UREA NITROGEN 15 MG/DL (9-23); CALCIUM LEVEL 9.3 MG/DL (8.5-10.1); CARBON DIOXIDE LEVEL 28 MMOL/L (20-31); CHLORIDE LEVEL 103 MMOL/L (98-107); CREATININE FOR GFR 1.09 MG/DL (0.55-1.30); GLOMERULAR FILTRATION RATE > 60.0 (>60); GLUCOSE, FASTING 79 MG/DL (60-100); POTASSIUM SERUM 3.5 MMOL/L (3.5-5.1); SALICYLATE LEVEL < 3.0 MG/DL (<30); SODIUM LEVEL 138 MMOL/L (136-145); TOTAL PROTEIN 7.6 G/DL (5.7-8.2)
[2024-10-27 04:34] LABS: THYROID STIMULATING HORMONE > 150.000 uIU/ML (0.55-4.78)
[2024-10-27] MEDS ORDERED: MEGE20TA3 PO (05:51)
[2024-10-27] MEDS ORDERED: AMPH1CAP16 PO (05:51)
[2024-10-27] MEDS ORDERED: HOME MED LIST COMPLETE! XX SCH (05:55)
[2024-10-27 06:59] LABS: PTH INTACT 34.7 PG/ML (18.5-88.0)
[2024-10-27 07:03] LABS: FREE T4 0.12 NG/DL (0.89-1.76)
[2024-10-27 08:51] LABS: BARBITURATES URINE NEGATIVE (NEGATIVE); BENZODIAZEPINES URINE NEGATIVE (NEGATIVE); COCAINE METABOLITE URINE NEGATIVE (NEGATIVE)
[2024-10-27 08:52] LABS: METHADONE URINE NEGATIVE (NEGATIVE); OPIATES URINE NEGATIVE (NEGATIVE); PHENCYCLIDINE URINE NEGATIVE (NEGATIVE)
[2024-10-27 08:56] LABS: AMPHETAMINES LEVEL URINE POSITIVE (NEGATIVE); CANNABINOIDS URINE POSITIVE (NEGATIVE)
[2024-10-27] MEDS: LEVOTHYROXINE 75MCG TABLET (0.075MG) PO ONE (09:15)
[2024-10-27 09:25] LABS: KETONE, URINE AUTO RFX NEGATIVE (NEGATIVE); LEUKOCYTE ESTERASE UR AUTO RFX 2+ (NEGATIVE); NITRITE, URINE AUTO RFX POSITIVE (NEGATIVE); RBC, URINE AUTO RFX 23 /HPF (0-3); SQUAM EPITHELIAL CELL UR AURFX 8 /HPF (0-6); WBC, URINE AUTO RFX 18 /HPF (0-3)
[2024-10-27 09:35] LABS: FREE T3 < 0.5 PG/ML (2.3-4.2)
[2024-10-27] MEDS: CEFDINIR 300 MG CAP (OMNICEF) PO ONE (10:07)
[2024-10-27] MEDS ORDERED: CEFD300C PO (12:25)
[2024-10-27] MEDS ORDERED: SYNT75TA PO (12:25)
[2024-10-27 12:43] VITALS: BP 133/76; TEMP 96.2; O2SAT 100
== END 2024-10-27 12:58 | disposition home or self-care (01) ==
LOC: M ED 02:55
DX: Z13.30 Encounter for screening examination for mental health and behavioral disorders, unspecified (principal); N39.0 Urinary tract infection, site not specified; E03.9 Hypothyroidism, unspecified; F31.9 Bipolar disorder, unspecified; C50.911 Malignant neoplasm of unspecified site of right female breast; F32.A Depression, unspecified; F41.9 Anxiety disorder, unspecified; F17.200 Nicotine dependence, unspecified, uncomplicated; D61.818 Other pancytopenia; Z91.51 Personal history of suicidal behavior; Z92.21 Personal history of antineoplastic chemotherapy; Z90.13 Acquired absence of bilateral breasts and nipples; Z79.899 Other long term (current) drug therapy; Z79.890 Hormone replacement therapy

== ENCOUNTER 2025-02-06 12:07 | Emergency (ER) | payer OTHER ==
[~2025-02-06] VITALS: Ht 154.9 cm; Wt 44.4 kg
[~2025-02-06 12:07] MED LIST changes: +AMPH1CAP16 PO; +CEFD300C PO; -EQL50TAB2 PO; +MEGE20TA3 PO; +NITR100C3 PO; +SYNT75TA PO; +VITA1TAB82 PO
[2025-02-06 12:09] VITALS: BP 119/73; TEMP 98; O2SAT 100
== END 2025-02-06 18:25 | disposition left against medical advice (07) ==
LOC: M ED 12:07
DX: T76.21XA Adult sexual abuse, suspected, initial encounter (principal); F31.9 Bipolar disorder, unspecified; F17.200 Nicotine dependence, unspecified, uncomplicated; F19.10 Other psychoactive substance abuse, uncomplicated; Z88.8 Allergy status to other drugs, medicaments and biological substances; Z91.02 Food additives allergy status; Z79.899 Other long term (current) drug therapy; Z79.2 Long term (current) use of antibiotics; Z53.9 Procedure and treatment not carried out, unspecified reason